=== PATIENT | female | born 1965 ===

== ENCOUNTER 2016-10-25 09:53 | Emergency (ER) | payer OTHER ==
[~2016-10-25] VITALS: Ht 162.6 cm; Wt 64.4 kg
[~2016-10-25 09:53] MED LIST: ARMOUR THYROID15 M1 PO; DAILY MULTIPLE1 EACH PO; HAIR, SKIN & N1 EACH PO; SERTRALINE HCL50 MG PO
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
--- NOTE | 2016-10-25 11:12 | RADIOLOGY REPORT ---
EXAMINATION: XR CHEST CLINICAL INFORMATION: Chest pain. Shortness of breath. COMPARISON: None TECHNIQUE: 2 views of the chest were obtained. FINDINGS: No significant abnormality is noted involving the heart, lungs, mediastinum, pleura, bony thorax or soft tissues. IMPRESSION: No radiographic evidence of pneumonia. No acute pulmonary process. Unremarkable examination.
--- NOTE | 2016-10-25 11:19 | RADIOLOGY REPORT ---
EXAMINATION: XR CERVICAL SPINE CLINICAL INFORMATION: Neck pain. Tenderness to palpation in the midline of the cervical spine. COMPARISON: None TECHNIQUE: Cervical spine 6 views: AP, bilateral oblique, lateral, open-mouth and odontoid views were obtained. FINDINGS: There is reversal of the cervical lordosis. The alignment is maintained. Vertebral body heights are maintained. Intervertebral disc spaces are preserved. Minimal degenerative changes are noted at C5-C6 with mild marginal hypertrophic endplate spurring. The posterior elements are intact and in normal alignment. Atlantoaxial distance is normal. No evidence of prevertebral soft tissue swelling. The airway is widely patent. No evidence of significant neural foraminal stenosis. No evidence of cervical ribs. Visualized lung apices are clear. The open-mouth and odontoid views are unremarkable. IMPRESSION: Mild degenerative changes at C5-C6. Reversal of the cervical lordosis could be related to muscular strain or patient positioning.
[2016-10-25] MEDS ORDERED: CYCLOBENZAPRINE5 M2 PO (12:27)
[2016-10-25 12:29] VITALS: BP 114/70
== END 2016-10-25 12:55 ==
LOC: ERH 09:53
DX: M62.838 Other muscle spasm (principal)
CPT/HCPCS: 72050; 93005; 93010; J3360